=== PATIENT | male | born 1970 | race Caucasian/White ===

== ENCOUNTER 2018-07-15 21:29 | Emergency (ER) | payer SELFPAY ==
[2018-07-15 21:33] VITALS: BP 115/82; PULSE 105; RESP 20; TEMP 37; O2SAT 95; BMI 21.5
[2018-07-15] MEDS: TET,DIPH,PERTUSS(ACELL),VAC/PF 0.5 ML SYRINGE IM (22:29)
[2018-07-15 22:45] VITALS: BP 106/84; PULSE 61; RESP 18; O2SAT 98
--- NOTE | 2018-07-16 02:00 | ED_ITS ---
HPI - Extremity Injury (Upper) General Chief Complaint: Extremity Injury, Upper Stated Complaint: Cut finger Time Seen by Provider: 07/15/18 21:45 Source: patient Mode of arrival: ambulatory Limitations: no limitations History of Present Illness HPI narrative: 48M smoker presents with chief complaint of work related laceration to R fifth finger. A large knife fell and he reached for it and suffered a laceration to the fifth finger. Despite holding pressure he continues to bleed after three hours. He denies numbness, tingling or weakness. MD complaint: injury to: right Onset (ago): hour(s) Other Extremity Injury: Right: fingers Other injuries: none Handedness: right Place: work Severity: mild Relieving factors: none Exacerbating factors: none Context: laceration Associated symptoms: denies other symptoms Related Data Home Medications Medication Instructions Recorded Confirmed albuterol sulfate [Ventolin HFA] 1 puff INH #0 08/25/16 alfuzosin 10 mg PO QDAY #0 08/25/16 cyclobenzaprine 10 mg PO HS #0 08/25/16 gabapentin [Neurontin] 600 mg PO #0 08/25/16 olanzapine [Zyprexa] 10 mg PO #0 08/25/16 vitamin D3-folic acid [Ciferex] 1 cap PO #0 08/25/16 Previous Rx's Medication Instructions Recorded cephalexin [Keflex] 500 mg PO QID 7 Days #28 cap 07/15/18 Allergies Allergy/AdvReac Type Severity Reaction Status Date / Time bupropion [From WELLBUTRIN] Allergy Severe ANAPHYLAXIS Verified 07/15/18 21:36 Review of Systems Review of Systems All systems reviewed & are unremarkable except as noted in HPI and below Constitutional Denies chills, Denies fever(s), Denies lethargy and Denies weakness Eyes Denies change in vision, Denies eye discharge, Denies irritation and Denies loss of vision ENT Ears, Nose, Mouth, and Throat: Denies change in voice, Denies neck pain and Denies sore throat Cardiovascular Denies chest pain, Denies irregular heart rhythm, Denies lightheadedness, Denies palpitations, Denies dyspnea, Denies dyspnea on exertion and Denies orthopnea Respiratory Denies cough, Denies dyspnea, Denies dyspnea on exertion and Denies wheezing Gastrointestinal Gastrointestinal: Denies abdominal pain, Denies change in bowel habits, Denies diarrhea, Denies nausea and Denies vomiting Genitourinary Denies hematuria, Denies flank pain, Denies urinary incontinence and Denies urinary urgency Musculoskeletal Denies neck pain Integumentary/Breasts Denies pruritus, Denies erythema, Denies rash and Reports wounds Neurologic Denies confusion, Denies loss of vision and Denies weakness Psychiatric Denies anxiety, Denies confusion, Denies depression, Denies homicidal ideation and Denies suicidal ideation Endocrine Denies palpitations Hematologic/Lymphatic Denies easy bruising Allergic/Immunologic Denies wheezing [facility] Social History Smoking Status: Current every day smoker Exam Narrative Exam Narrative: 40-year-old male resting comfortably applying pressure to right 5th finger, bandage is saturated in red blood Initial Vital Signs Initial Vital Signs: Vital Signs Temperature 98.6 F 07/15/18 21:33 Pulse Rate 105 H 07/15/18 21:33 Respiratory Rate 20 07/15/18 21:33 Blood Pressure 115/82 07/15/18 21:33 Pulse Oximetry 95 07/15/18 21:33 Const General: cooperative and well developed Nutritional Appearance: well nourished Orientation: alert, awake, oriented x3 and not confused HENSC Head: normocephalic and atraumatic Ears: external ears normal and TM's normal bilaterally Nose: external nose normal and No nasal discharge Face and sinus: sinuses nontender, face symmetric, no sinus tenderness and No dry mucous membranes Mouth: oral mucosae normal and moist mucous membranes Teeth and gingiva: dentition normal Throat: tonsils normal and uvula midline Resp Effort & Inspection: normal respiratory effort, able to speak in complete sentences, no respiratory distress and no use of accessory muscles Auscultation: clear to auscultation bilaterally, no rales, no rhonchi and no wheezes GI Inspection: non-distended Palpation: soft, no hepatosplenomegaly, No guarding, No pulsatile mass and No tender Auscultation: normal bowel sounds Back/Spine/Pelvis Back: No CVA tenderness Cervical Spine: cervical ROM normal and No pain with cervical ROM Thoracic/Lumbar Spine: thoracic and lumbar spine normal to inspection Skin General: no rashes or lesions noted, No jaundice and No petechiae Trauma: laceration Neuro General: alert, oriented x3, gait normal and no focal motor deficits Speech: speech normal Extrem General: full ROM, no clubbing, cyanosis or edema, no pedal edema and no calf tenderness Procedures Laceration Repair Laceration 1: Site: hand Side (If applicable): right Size (cm): 0.5 Description: irregular Depth: simple, single layer Skin layer closed with: nylon Size (cm): 5-0 and other (Single suture to achieve hemostasis) Number of sutures: 1 Course Orders Ordered: Discontinued Medications Diphtheria/Tetanus/Acell Pertussis (Adacel) 0.5 ml IM .ONCE ONE Stop: 07/15/18 22:21 Last Admin: 07/15/18 22:29 Dose: 0.5 ml Vital Signs - 8 hr 07/15/18 22:45 Pulse Rate 61 Respiratory Rate 18 Blood Pressure [Left Arm] 106/84 Pulse Oximetry 98 Discharge Plan Departure Patient Disposition: Home Clinical Impression: Finger laceration Discharge Date/Time: 07/15/18 22:47 Interventions: ED Discharge Assessment Last Done: 07/15/18 22:46 Instructions: DI for Laceration Repair Activity Restrictions/Additional Instructions: Please keep the wound clean and dry to the best of your ability. Please monitor for signs of infection such as redness to the skin or increasing pain. Have the sutures removed by your doctor in about 7 days. If you are unable to get into your doctor, we would be happy to remove the sutures in that same timeframe. Prescriptions: New cephalexin [Keflex] 500 mg capsule 500 mg PO QID 7 Days Qty: 28 RF: 0 No Action alfuzosin 10 MG tablet extended release 24 hr 10 mg PO QDAY Qty: 0 RF: 0 gabapentin [Neurontin] 600 MG tablet 600 mg PO Qty: 0 RF: 0 olanzapine [Zyprexa] 10 MG tablet 10 mg PO Qty: 0 RF: 0 vitamin D3-folic acid [Ciferex] 3,775 UNITS/1 MG capsule 1 cap PO Qty: 0 RF: 0 cyclobenzaprine 10 MG tablet 10 mg PO HS Qty: 0 RF: 0 albuterol sulfate [Ventolin HFA] 90 MCG/PUFF HFA aerosol inhaler 1 puff INH Qty: 0 RF: 0 Referrals: Katie Fish DO [Primary Care Provider] -
== END 2018-07-15 22:47 | disposition home or self-care (01) ==
PROVIDERS: Emergency Provider Emergency Medicine; PCP Family Medicine
DX: S61.216A Laceration without foreign body of right little finger without damage to nail, initial encounter (principal); W26.0XXA Contact with knife, initial encounter; Y99.0 Civilian activity done for income or pay
CPT/HCPCS: 12001; 90471; 99282; 99283; 90715

== ENCOUNTER 2021-11-05 13:07 | Emergency (ER) | payer SELFPAY ==
[2021-11-05] VITALS (9 sets, daily range): BP systolic 116–136; BP diastolic 55–91; PULSE 86–109; RESP 16–30; TEMP 36.4; O2SAT 96–99; BMI 25.8
--- NOTE | 2021-11-05 13:15 | ED_ITS ---
HPI - Syncope General Chief Complaint: Syncope Stated Complaint: Syncope Time Seen by Provider: 11/05/21 13:12 History of Present Illness HPI narrative: Patient is a 51-year-old male history of bipolar presenting today with syncopal episode. He thinks he ate something bad yesterday he had about 6 hours of diarrhea he had no fever or vomiting he said it was quite like that liquidy nonb loody. Woke up this morning and felt normal. He had [employer] pieces for breakfast. He was coming down stairs at work when he got very lightheaded and passed out briefly. EMS reports a low blood pressure on scene. Patient now is feeling a bit better after fluids. He denies any abdominal pain nausea vomiting or fever. He says the diarrhea has stopped. Related Data Home Medications Medication Instructions Recorded Confirmed albuterol sulfate 90 mcg/actuation 1 puff INH #0 08/25/16 aerosol inhaler (Ventolin HFA) alfuzosin 10 mg tablet,extended 10 mg PO QDAY #0 08/25/16 release 24 hr cyclobenzaprine 10 mg tablet 10 mg PO HS #0 08/25/16 gabapentin 600 mg tablet 600 mg PO #0 08/25/16 (Neurontin) olanzapine 10 mg tablet (Zyprexa) 10 mg PO #0 08/25/16 vitamin D3 94.38 mcg (3,775 1 cap PO #0 08/25/16 unit)-folic acid 1 mg capsule (Ciferex) Allergies Allergy/AdvReac Type Severity Reaction Status Date / Time bupropion [From WELLBUTRIN] Allergy Severe ANAPHYLAXIS Verified 07/15/18 21:36 Review of Systems Review of Systems Narrative: GENERAL: Denies chills, fatigue, malaise, fever, sweats, travel HEENT: Denies sinus pain, ear pain, sore throat, difficulty swallowing, neck pain RESPIRATORY: Denies dyspnea, cough, wheezing, hemoptysis, sputum. CARDIOVASCULAR: Denies chest pain, palpitations, orthopnea, edema GASTROINTESTINAL: See HPI : Denies dysuria, frequency, incontinence, hematuria, urinary retention, flank pain. MUSCULOSKELETAL: Denies weakness, joint pain, or bony pain SKIN: No rash, no erythema, no pruritus NEUROLOGIC: Denies weakness, dizziness, headache, numbness, change in speech, confusion PSYCHIATRIC: No concerning psychosocial issues. 12 point review of systems is negative except for those stated above and HPI Patient History Social History Smoking Status: Current every day smoker Smoking Status: Current every day smoker alcohol intake frequency: a few times a week Substance Use Type: marijuana Exam Initial Vital Signs Initial Vital Signs: Vital Signs Temperature 97.6 F 11/05/21 13:07 Pulse Rate 100 H 11/05/21 13:07 Respiratory Rate 16 11/05/21 13:07 Blood Pressure 116/55 L 11/05/21 13:07 Pulse Oximetry 99 11/05/21 13:07 GENERAL: Alert well-appearing 51-year-old maleand in no acute distress. HEENT: Head atraumatic,EOMI, pupils reactive, face symmetric, [moist] mucous membranes CARDIOVASCULAR: Regular rate and rhythm without murmurs, rubs or gallops. RESPIRATORY: Breath sounds equal bilaterally, no wheezes rales or rhonchi. ABDOMEN: Soft, nontender. Normoactive bowel sounds all 4 quadrants. No guarding or rebound. EXTREMITIES: Normal range of motion, no clubbing or edema. Neurovascularly intact NEUROLOGICAL: Alert and oriented x4.Normal gait and speech. Cranial nerves II through XII grossly intact. [employer] strength equal bilaterally SKIN: Warm, dry, no laceration, no petechiae, no rashes or lesions. Course Orders Ordered: ED Orders 11/05/21 13:11 CBC Auto Diff [Complete Blood Count AUTO DIFF] Stat CMP [Comprehensive Metabolic Panel] Stat 11/05/21 13:28 EKG-12 Lead Stat Discontinued Medications Sodium Chloride (Normal Saline 0.9%) 1,000 mls @ 1,000 mls/hr IV BOLUS ONE Stop: 11/05/21 14:14 Last Admin: 11/05/21 14:03 Dose: Not Given Documented by: FAMILIAE Vital Signs Vital signs: Vital Signs - 8 hr 11/05/21 13:07 11/05/21 13:13 11/05/21 13:30 Temperature 97.6 F Pulse Rate 100 H 109 H 97 H Pulse Rate [Orthostatic Lying] Pulse Rate [Orthostatic Sitting] Pulse Rate [Orthostatic Standing] Respiratory Rate 16 30 H Blood Pressure 116/55 L 124/66 Blood Pressure [Orthostatic Lying] Blood Pressure [Orthostatic Sitting] Blood Pressure [Orthostatic Standing] Pulse Oximetry 99 99 98 11/05/21 14:00 11/05/21 14:30 11/05/21 14:41 Temperature Pulse Rate 88 86 95 H Pulse Rate [Orthostatic Lying] Pulse Rate [Orthostatic Sitting] Pulse Rate [Orthostatic Standing] Respiratory Rate 22 22 21 Blood Pressure 125/67 119/86 125/87 Blood Pressure [Orthostatic Lying] Blood Pressure [Orthostatic Sitting] Blood Pressure [Orthostatic Standing] Pulse Oximetry 97 96 99 11/05/21 14:43 11/05/21 14:44 11/05/21 14:45 Temperature Pulse Rate 100 H 98 H Pulse Rate [Orthostatic Lying] 91 H Pulse Rate [Orthostatic Sitting] 102 H Pulse Rate [Orthostatic Standing] 98 H Respiratory Rate 21 28 H Blood Pressure 136/91 H 128/82 Blood Pressure [Orthostatic Lying] 125/87 Blood Pressure [Orthostatic Sitting] 136/91 H Blood Pressure [Orthostatic Standing] 128/82 Pulse Oximetry 99 97 MDM - Syncope Lab Data Result diagrams: 11/05/21 13:11 11/05/21 13:11 Labs: Lab Results 11/05/21 11/05/21 Range/Units 13:11 13:11 WBC 9.0 (4.5-11.0) X10^3/uL RBC 4.83 (4.5-5.9) X10^6/uL Hgb 15.8 (13.5-17.5) g/dL Hct 46.3 (41-53) % MCV 95.9 (80-100) fL MCH 32.8 (26-34) PG MCHC 34.2 (30-36) % RDW 13.4 (11.6-14.8) % Plt Count 308 (150-400) X10^3/uL Neut % (Auto) 69.9 (50-75) % Lymph % (Auto) 20.9 L (25-40) % [place]duffie % (Auto) 8.2 (3-14) % Eos % (Auto) 0.3 L (2-4) % Baso % (Auto) 0.7 (0-2) % Neut # (Auto) 6300 (4224-9645) /uL Lymph # (Auto) 1900 (7135-4499) /uL [place]duffie # (Auto) 700 (0-900) /uL Eos # (Auto) 0 (0-450) /uL Baso # (Auto) 100 (0-100) /uL Sodium 138 (137-145) mmol/L Potassium 3.4 (3.4-5.1) mmol/L Chloride 98 (98-107) mmol/L Carbon Dioxide 30 (22-32) mmol/L BUN 11 (9-20) mg/dL Creatinine 1.13 (0.66-1.25) mg/dL Estimated GFR > 60.0 (>60) mL/min BUN/Creatinine Ratio 9.7 (6-22) Glucose 149 H (70-100) mg/dL Calcium 9.0 (8.4-10.2) mg/dL Total Bilirubin 0.7 (0.2-1.3) mg/dL AST 25 (17-59) IU/L ALT 25 (<50) IU/L Alkaline Phosphatase 58 (38-126) U/L Total Protein 8.2 (6.3-8.2) g/dL Albumin 5.0 (3.5-5.0) g/dL Globulin 3.2 (1.7-4.1) g/dL Albumin/Globulin Ratio 1.6 (1.0-2.8) ECG Data Interpretation: Normal sinus arhythmia rhythm rate 96 IA interval 150 QRS [address] changes no T-wave inversions no prior to compare MDM Narrative Medical decision making narrative: Patient likely had a vasovagal reaction. He feels better with IV fluids. Blood work is overall reassuring EKG does show a sinus arrhythmia but at this time unlikely the cause of his syncopal episode. He ambulates in the ED without any problem. Discharge Plan Departure Patient Disposition: Home Clinical Impression: Vasovagal syncope Instructions: DI for Syncope in Adults (Fainting) Activity Restrictions/Additional Instructions: *You have been diagnosed with syncopal episode *What to do: At this time please increase fluid intake, eat regular meals *Continue to take medications as directed *Follow up with your primary care provider in 2-3 days or call [phone] *Return to ER if you should have persistent diarrhea, worsening vomiting, abdominal pain chest pain recurrent episode of passing out or any new, worsening or concerning symptoms Prescriptions: No Action alfuzosin 10 MG tablet extended release 24 hr 10 mg PO QDAY Qty: 0 0RF gabapentin [Neurontin] 600 MG tablet 600 mg PO Qty: 0 0RF olanzapine [Zyprexa] 10 MG tablet 10 mg PO Qty: 0 0RF vitamin D3-folic acid [Ciferex] 3,775 UNITS/1 MG capsule 1 cap PO Qty: 0 0RF cyclobenzaprine 10 MG tablet 10 mg PO HS Qty: 0 0RF albuterol sulfate [Ventolin HFA] 90 MCG/PUFF HFA aerosol inhaler 1 puff INH Qty: 0 0RF Referrals: Katie Fish DO [Physician] -
[2021-11-05 13:24] LABS: Add Manual Diff / Slide Review NO; Basophils Absolute Auto 100 /uL (0-100); Basophils Percent Auto 0.7 % (0-2); Eosinophils Absolute Auto 0 /uL (0-450); Eosinophils Percent Auto 0.3 % (2-4); Hematocrit 46.3 % (41-53); Hemoglobin 15.8 g/dL (13.5-17.5); Lymphocytes Absolute Auto 1900 /uL (1100-4500); Lymphocytes Percent Auto 20.9 % (25-40); Mean Corpuscular HGB Conc 34.2 % (30-36); Mean Corpuscular Hemoglobin 32.8 PG (26-34); Mean Corpuscular Volume 95.9 fL (80-100); Monocytes Absolute Auto 700 /uL (0-900); Monocytes Percent Auto 8.2 % (3-14); Neutrophils Absolute Auto 6300 /uL (1500-7000); Neutrophils Percent Auto 69.9 % (50-75); Platelet Count 308 X10^3/uL (150-400); Red Blood Cell Count 4.83 X10^6/uL (4.5-5.9); Red Cell Distribution Width 13.4 % (11.6-14.8)
[2021-11-05 13:33] LABS: Alanine Aminotransferase 25 IU/L (<50); Albumin Globulin Ratio 1.6 (1.0-2.8); Alkaline Phosphatase 58 U/L (38-126); Aspartate Aminotransferase 25 IU/L (17-59); BUN Creatinine Ratio 9.7 (6-22); Bilirubin Total 0.7 mg/dL (0.2-1.3); Blood Urea Nitrogen 11 mg/dL (9-20); Carbon Dioxide 30 mmol/L (22-32); Chloride 98 mmol/L (98-107); Estimated Glomerular Filt Rate > 60.0 mL/min (>60); Globulin 3.2 g/dL (1.7-4.1); Glucose 149 mg/dL (70-100); HEMOLYSIS < 15 (0-50); Potassium 3.4 mmol/L (3.4-5.1); Sodium 138 mmol/L (137-145); Total Protein 8.2 g/dL (6.3-8.2)
--- NOTE | 2021-11-05 15:05 | PC.NURSE ---
pt reports he feels better, got one liter of fluid. ambulated without difficulty. ready to go home.
--- NOTE | 2021-11-05 15:15 | PC.NURSE ---
sent home with patient
== END 2021-11-05 15:15 | disposition home or self-care (01) ==
PROVIDERS: Emergency Provider Emergency Medicine
DX: R55 Syncope and collapse (principal); I49.8 Other specified cardiac arrhythmias
CPT/HCPCS: 80053; 85025; 93005; 93010; 99281; 99283

== ENCOUNTER 2023-11-23 10:17 | Emergency (ER) | payer OTHER, SELFPAY ==
[2023-11-23] VITALS (17 sets, daily range): BP systolic 117–144; BP diastolic 63–91; PULSE 94–116; RESP 9–20; TEMP 36.9; O2SAT 94–99; BMI 25.7
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
[2023-11-23 10:38] LABS: Add Manual Diff / Slide Review NO; Basophils Absolute Auto 100 /uL (0-100); Basophils Percent Auto 0.8 % (0-2); Eosinophils Absolute Auto 100 /uL (0-450); Eosinophils Percent Auto 1.7 % (2-4); Hematocrit 44.9 % (41-53); Hemoglobin 15.2 g/dL (13.5-17.5); Lymphocytes Absolute Auto 2600 /uL (1100-4500); Lymphocytes Percent Auto 30.1 % (25-40); Mean Corpuscular HGB Conc 33.8 % (30-36); Mean Corpuscular Hemoglobin 31.2 PG (26-34); Mean Corpuscular Volume 92.3 fL (80-100); Monocytes Absolute Auto 700 /uL (0-900); Neutrophils Absolute Auto 5100 /uL (1500-7000); Neutrophils Percent Auto 59.4 % (50-75); Platelet Count 335 X10^3/uL (150-400); Red Blood Cell Count 4.87 X10^6/uL (4.5-5.9); Red Cell Distribution Width 13.2 % (11.6-14.8); White Blood Cell Count 8.6 X10^3/uL (4.5-11.0)
[2023-11-23 10:39] LABS: INR 0.9 (0.9-1.3); Prothrombin Time 10.4 SECONDS (9.4-12.5)
[2023-11-23 10:42] LABS: PTT Partial Thromboplastin Tim 29 SECONDS (25.1-36.5)
[2023-11-23] MEDS: HYDROMORPHONE 1 MG INJ IV (10:42)
[2023-11-23] MEDS: ONDANSETRON 4 MG/2 ML INJ IV (10:42)
[2023-11-23 10:46] LABS: Alanine Aminotransferase 42 IU/L (<50); Albumin 4.4 g/dL (3.5-5.0); Albumin Globulin Ratio 1.3 (1.0-2.8); Alkaline Phosphatase 79 U/L (38-126); Aspartate Aminotransferase 37 IU/L (17-59); BUN Creatinine Ratio 11.8 (6-22); Bilirubin Total 0.6 mg/dL (0.2-1.3); Blood Urea Nitrogen 9 mg/dL (9-20); Calcium 9.3 mg/dL (8.4-10.2); Carbon Dioxide 34 mmol/L (22-32); Chloride 100 mmol/L (98-107); Estimated Glomerular Filt Rate > 60 mL/min (>60); Ethanol (ETOH) < 10 mg/dL; Globulin 3.3 g/dL (1.7-4.1); Glucose 142 mg/dL (70-100); HEMOLYSIS 20 (0-50); Lipase 259 U/L (23-300); Potassium 3.7 mmol/L (3.4-5.1); Sodium 138 mmol/L (137-145); Total Protein 7.7 g/dL (6.3-8.2)
[2023-11-23] MEDS: KETOROLAC 30 MG/ML VIAL 15 MG IV (11:26)
--- NOTE | 2023-11-23 12:19 | DI.CT.S_ITS ---
PROCEDURE: CT FACIAL BONES WO CON INDICATIONS: left zygomatic arch fracture TECHNIQUE: Noncontrast 2.5 mm thick axial images acquired from the mandible through the frontal sinuses, with coronal and sagittal reformatting. For radiation dose reduction, the following was used: automated exposure control, adjustment of mA and/or kV according to patient size. COMPARISON: None. FINDINGS: Image quality: Excellent. Bones and teeth: Mildly displaced segmental fracture of the left zygomatic arch. Mild displaced fracture of the anterior and lateral left maxillary sinus handley with extension to the lateral aspect of the inferior orbital rim and orbital floor. Orbital handley are otherwise intact. Nasal bones and septum are intact. Visualized portions of the mandible demonstrate no fractures or subluxation. Zygomatic arches are intact. Pterygoid plates are intact. Visualized portions of the skull base and auditory canals are intact. Sinuses: Air-fluid level within the left maxillary sinus.. Mastoid air cells are aerated. Soft tissues: Bruising with small subcutaneous emphysema over the left cheek. No enlarged lymph nodes. No soft tissue lacerations or debris. Vascular: Visualized vascular structures appear normal in the absence of contrast. Bony vascular foramina and canals are intact. IMPRESSION: Mildly displaced fractures involving the left zygomatic arch, left maxillary sinus and lateral orbital floor as described above. Small blood within the left maxillary sinus. Dictated by: Oscar Fischer M.D. on 11/23/2023 at 13:05 Approved by: Oscar Fischer M.D. on 11/23/2023 at 13:11
[2023-11-23 13:02] LABS: Appearance Urine UA CLEAR; Bilirubin Urine UA NEGATIVE (NEGATIVE); Color Urine UA YELLOW; Glucose Urine UA NEGATIVE (Negative); Ketones Urine UA NEGATIVE (NEGATIVE); Leukocyte Esterase Urine UA NEGATIVE (NEGATIVE); Nitrite Urine UA NEGATIVE (Negative); Occult Blood Urine UA 2+ (Negative); Protein Urine UA NEGATIVE (Negative); Specific Gravity Urine UA <=1.005 (1.000-1.035); Urobilinogen Urine UA 0.2 E.U./dL (0.2)
[2023-11-23 13:03] LABS: UR Morphine/Opiate cutoff 300 Negative (Negative); Ur Creatinine Normal (Normal); Ur Specific Gravity Normal (Normal); Urine Amphetamines Negative (Negative); Urine Barbiturates Negative (Negative); Urine Benzodiazepines Negative (Negative); Urine Cocaine Negative (Negative); Urine MDMA Negative (Negative); Urine Methadone Negative (Negative); Urine Methamphetamines Negative (Negative); Urine Oxycodone Negative (Negative); Urine Phencyclidine Negative (Negative); Urine Tetrahydrocannabinol Positive (Negative); Urine Tricyclic Antidepressant Negative (Negative); Urine pH Normal (Normal)
[2023-11-23 13:15] LABS: RBC Urine 5-10/HPF (0-5/HPF); Urine Volume 10mL (spun)
[2023-11-23 13:16] LABS: Bacteria Urine None Seen; Culture Indicated Urine Cult Not Indicated; Squamous Epithelial Cell Urine 1-5 /HPF (0-5/HPF); WBC Urine None Seen (0-5/HPF)
--- NOTE | 2023-11-23 13:24 | PC.NURSE ---
RT in to educate on incentive spirometry. Lungs reassessed. some rhonchi in upper lobes. Pt is a daily smoker. educated on smoking cessation.
[2023-11-23] MEDS: ACETAMINOPHEN 325 MG TABLET 975 MG PO (14:17)
[2023-11-23] MEDS: TRAMADOL 50 MG TABLET 100 MG PO (14:18)
== END 2023-11-23 15:20 | disposition home or self-care (01) ==
PROVIDERS: Emergency Provider Emergency Medicine
DX: S02.40FA Zygomatic fracture, left side, initial encounter for closed fracture (principal); S02.32XA Fracture of orbital floor, left side, initial encounter for closed fracture; S51.812A Laceration without foreign body of left forearm, initial encounter; V29.99XA Rider (driver) (passenger) of other motorcycle injured in unspecified traffic accident, initial encounter
CPT/HCPCS: 70450; 70486; 71045; 71260; 72125; 74177; 80053; 80305; 80320; 81001; 83690; 85025; 85610; 85730; 96374; 96375; 99284; J1170; J1885; J2405; Q9967